=== PATIENT | male | born 1945 | race Caucasian/White ===

== ENCOUNTER → 2020-12-31 | Outpatient (CLI) | payer MEDICARE, BC ==
--- NOTE | 2020-12-31 10:22 | RAD ---
Site ID: [id number] EXAMINATION: XR CHEST 2V. HISTORY: 75 years Male Reason: COUGHING AND WHEEZING. / Spl. Instructions: / History: . . COMPARISON: None. Findings: The lungs are clear. The heart size is normal. There is no effusion or pneumothorax. The mediastinum and raimundo appear unremarkable. Impression: Unremarkable study. Electronically signed by: Beto Vega MD (12/31/2020 10:19 AM) [id number]
== END ==
LOC: RAD 09:31
PROVIDERS: ATTEND Internal Medicine Pulmonary Disease
DX: R05 Cough (principal); R06.2 Wheezing
CPT/HCPCS: 71046